=== PATIENT | male | born 1970 | race Caucasian/White ===

== ENCOUNTER 2018-07-08 03:00 | Emergency (ER) | payer BC ==
[2018-07-08] MEDS: METHYLPREDNISOLONE 125 MG INJ IV (03:31)
[2018-07-08] MEDS: DIPHENHYDRAMINE 50 MG INJ IV (03:31)
[2018-07-08] MEDS: FAMOTIDINE 20 MG INJ IV (03:32)
[2018-07-08] MEDS: EPINEPHrine 1 MG INJ IM (03:32)
== END 2018-07-08 05:19 | disposition home or self-care (01) ==
LOC: E/R 03:00
DX: T78.1XXA Other adverse food reactions, not elsewhere classified, initial encounter (principal); L50.0 Allergic urticaria; Z91.010 Allergy to peanuts
CPT/HCPCS: 96372; 96374; 96375; 99284-25